=== PATIENT | male | born 1935 | race Caucasian/White ===

== ENCOUNTER 2019-09-28 00:11 | Observation (INO) ==
[2019-09-28] MEDS ORDERED: DEXTROSE 10% 250 ML BAG IV PRN (02:32)
[2019-09-28] MEDS ORDERED: GLUCAGON 1 MG VIAL IM PRN (02:32)
[2019-09-28] MEDS ORDERED: ONDANSETRON 4 MG/2 ML VIAL IV PRN (02:37)
[2019-09-28] MEDS ORDERED: ACETAMINOPHEN 325 MG TABLET PO PRN (02:37)
[2019-09-28 07:48] LABS: Albumin 3.1 G/DL (3.4-5.0); Bilirubin,Total 0.5 MG/DL (0.2-1.0); Osmolality,Calculated 277.4 MOS/KG (273-304); Risk Ratio 3.89; Total Protein 6.4 G/DL (6.4-8.3)
[2019-09-28] MEDS: PANTOPRAZOLE 40 MG TABLET PO SCH (08:05)
[2019-09-28] MEDS: LOSARTAN 25 MG TABLET PO SCH (10:54)
[2019-09-28] MEDS ORDERED: BACITRACIN OINT 0.9 GM PACK TOP SCH (12:00)
[2019-09-29 06:30] LABS: Basophils % 0.3 % (0.0-0.8); Eosinophils # 0.2 10*3/uL (0.0-0.87); Eosinophils % 3.1 % (0.00-10.9); Hematocrit 38.8 VOL% (42.0-52.0); Hemoglobin 12.4 GM/DL (14.0-18.0); Immature Granulocytes % 0.3 %; Immature Granulocytes Absolute 0.02 #; Lymphocytes # 1.8 10*3/uL (1.4-4.0); Lymphocytes % 23.8 % (21.2-54.2); Mean Corpuscular Volume 99.2 FL (87-102); Mean Platelet Volume 10.1 FL (9.6-12.0); Neutrophils % 59.5 % (38.7-73.9); Platelet Count 241 T/CUMM (130-400); Red Blood Count 3.91 MC/CUMM (3.8-5.5); Red Cell Distribution Width 13.4 % (9.3-17.3); White Blood Count 7.4 T/CUMM (4-12)
[2019-09-29 07:36] LABS: Calcium 8.7 MG/DL (8.5-10.1); Osmolality,Calculated 273.7 MOS/KG (273-304)
[2019-09-29] MEDS: PANTOPRAZOLE 40 MG TABLET PO SCH (09:38)
[2019-09-29] MEDS: LOSARTAN 25 MG TABLET PO SCH (09:39)
[2019-09-29 11:13] VITALS: BP 145/81
== END 2019-09-29 13:20 | disposition home or self-care (01) ==
LOC: SUATTDRO 01:59 → INTOOBSV 01:59 → N.TELES 01:59
PROVIDERS: ADMIT Internal Medicine; ATTEND Internal Medicine

== ENCOUNTER 2019-10-07 20:32 | Inpatient (IN) ==
[2019-10-07] MEDS ORDERED: SODIUM CHLORIDE 0.9% 1,000 ML IV STA ×2 (20:47→21:09)
[2019-10-07 20:53] LABS: Basophils % 0.1 % (0.0-0.8); Eosinophils % 0.1 % (0.00-10.9); Hematocrit 41.7 VOL% (42.0-52.0); Hemoglobin 13.6 GM/DL (14.0-18.0); Immature Granulocytes % 0.5 %; Immature Granulocytes Absolute 0.07 #; Lymphocytes # 1.2 10*3/uL (1.4-4.0); Lymphocytes % 7.8 % (21.2-54.2); Mean Corpuscular HGB Conc 32.6 GM/DL (32-36); Mean Corpuscular Volume 97.9 FL (87-102); Mean Platelet Volume 9.5 FL (9.6-12.0); Monocytes % 6.6 % (1.7-12.7); Neutrophils % 84.9 % (38.7-73.9); Platelet Count 316 T/CUMM (130-400); Red Blood Count 4.26 MC/CUMM (3.8-5.5); Red Cell Distribution Width 13.3 % (9.3-17.3); White Blood Count 14.8 T/CUMM (4-12)
[2019-10-07] MEDS ORDERED: DILTIAZEM 50 MG/10 ML VIAL IV STA (21:09)
[2019-10-07] MEDS ORDERED: ONDANSETRON 4 MG/2 ML VIAL IV ONE (21:09)
[2019-10-07 21:12] LABS: Albumin 3.4 G/DL (3.4-5.0); Bilirubin,Total 0.5 MG/DL (0.2-1.0); Calcium 10.1 MG/DL (8.5-10.1); Osmolality,Calculated 276.8 MOS/KG (273-304); Total Protein 6.8 G/DL (6.4-8.3)
[2019-10-07 21:34] LABS: Troponin I < 0.015 NG/ML (0.00-0.045)
[2019-10-07] MEDS ORDERED: ONDANSETRON 4 MG/2 ML VIAL ONE (21:47)
[2019-10-07] MEDS ORDERED: metroNIDAZOLE INJ 500 MG in PREMIX 1 EACH IV STA (22:12)
[2019-10-07] MEDS ORDERED: CIPROFLOXACIN INJ 400 MG in PREMIX 1 EACH IV STA (22:12)
[2019-10-07] MEDS ORDERED: metroNIDAZOLE 500 MG/100 ML PREMIX IV ONE (22:19)
[2019-10-07 22:25] LABS: Partial Thromboplastin Time 24.5 SECS (23.9-33.8)
[2019-10-07 23:08] LABS: Apearance,Urine CLEAR (Clear); Bilirubin,Urine Negative (Negative); Blood, Urine Negative (Negative); Glucose,Urine (UA) Negative (Negative); Hyaline Casts,Urine 23 /LPF (0-3); Ketones,Urine 5 mg/dL (Negative); Nitrite,Urine Negative (Negative); Protein,Urine Negative; RBC,Urine 1 /HPF (0-4); Urine Color Amber (Yellow); WBC,Urine 1 /HPF (0-6)
[2019-10-08] MEDS ORDERED: ONDANSETRON 4 MG/2 ML VIAL IV PRN (00:52)
[2019-10-08] MEDS ORDERED: ACETAMINOPHEN 325 MG TABLET PO PRN (00:52)
[2019-10-08] MEDS ORDERED: MORPHINE 4 MG/1 ML VIAL IV PRN (00:52)
[2019-10-08] MEDS: DEXTROSE 5% NACL 0.45% 1,000 ML IV SCH ×2 (03:04→15:55)
[2019-10-08] MEDS: cefTRIAXone 2,000 MG in SYRINGE 1 EACH IV SCH (03:05)
[2019-10-08] MEDS ORDERED: metroNIDAZOLE 500 MG TABLET PO SCH (06:00)
[2019-10-08 06:08] LABS: Basophils % 0.1 % (0.0-0.8); Hematocrit 42.5 VOL% (42.0-52.0); Immature Granulocytes % 0.4 %; Immature Granulocytes Absolute 0.07 #; Lymphocytes # 1.3 10*3/uL (1.4-4.0); Lymphocytes % 7.6 % (21.2-54.2); Mean Corpuscular HGB Conc 32.9 GM/DL (32-36); Mean Platelet Volume 10.2 FL (9.6-12.0); Monocytes % 8.1 % (1.7-12.7); Neutrophils % 83.8 % (38.7-73.9); Platelet Count 299 T/CUMM (130-400); Red Blood Count 4.38 MC/CUMM (3.8-5.5); Red Cell Distribution Width 13.3 % (9.3-17.3); White Blood Count 17.7 T/CUMM (4-12)
[2019-10-08 06:32] LABS: Calcium 9.5 MG/DL (8.5-10.1); Osmolality,Calculated 269.2 MOS/KG (273-304)
[2019-10-08] MEDS: metroNIDAZOLE 500 MG TABLET PO SCH ×2 (08:15→16:37)
[2019-10-09] MEDS: metroNIDAZOLE 500 MG TABLET PO SCH ×3 (01:42→16:17)
[2019-10-09] MEDS: cefTRIAXone 2,000 MG in SYRINGE 1 EACH IV SCH (01:42)
[2019-10-09 06:34] LABS: Basophils % 0.2 % (0.0-0.8); Eosinophils # 0.1 10*3/uL (0.0-0.87); Eosinophils % 0.6 % (0.00-10.9); Hemoglobin 12.9 GM/DL (14.0-18.0); Immature Granulocytes % 0.5 %; Immature Granulocytes Absolute 0.06 #; Lymphocytes # 1.6 10*3/uL (1.4-4.0); Lymphocytes % 12.5 % (21.2-54.2); Mean Corpuscular HGB Conc 32.3 GM/DL (32-36); Mean Platelet Volume 10.4 FL (9.6-12.0); Monocytes % 10.4 % (1.7-12.7); Neutrophils % 75.8 % (38.7-73.9); Platelet Count 275 T/CUMM (130-400); Red Cell Distribution Width 13.5 % (9.3-17.3)
[2019-10-09] MEDS: DEXTROSE 5% NACL 0.45% 1,000 ML IV SCH (06:34)
[2019-10-09 06:57] LABS: Calcium 8.3 MG/DL (8.5-10.1); Osmolality,Calculated 273.7 MOS/KG (273-304)
[2019-10-09] MEDS: EZETIMIBE 10 MG TABLET PO SCH (18:23)
[2019-10-09] MEDS: LOSARTAN 25 MG TABLET PO SCH (18:23)
[2019-10-09] MEDS: FINASTERIDE 5 MG TABLET PO SCH (18:23)
[2019-10-09] MEDS: ATORVASTATIN 10 MG TABLET PO SCH (18:23)
[2019-10-09] MEDS ORDERED: FLUTICASONE 50 MCG NASAL SPRAY 16 GM BOTTLE BOTH NARES PRN (21:00)
[2019-10-10] MEDS: cefTRIAXone 2,000 MG in SYRINGE 1 EACH IV SCH (02:15)
[2019-10-10] MEDS: metroNIDAZOLE 500 MG TABLET PO SCH ×2 (02:20→09:38)
[2019-10-10 06:39] LABS: Basophils % 0.2 % (0.0-0.8); Eosinophils # 0.3 10*3/uL (0.0-0.87); Eosinophils % 2.9 % (0.00-10.9); Hematocrit 38.3 VOL% (42.0-52.0); Hemoglobin 12.4 GM/DL (14.0-18.0); Immature Granulocytes % 0.3 %; Immature Granulocytes Absolute 0.03 #; Lymphocytes # 1.7 10*3/uL (1.4-4.0); Lymphocytes % 15.9 % (21.2-54.2); Mean Corpuscular HGB Conc 32.4 GM/DL (32-36); Mean Platelet Volume 10.2 FL (9.6-12.0); Monocytes % 9.9 % (1.7-12.7); Neutrophils % 70.8 % (38.7-73.9); Platelet Count 273 T/CUMM (130-400); Red Blood Count 3.87 MC/CUMM (3.8-5.5); Red Cell Distribution Width 13.6 % (9.3-17.3); White Blood Count 10.8 T/CUMM (4-12)
[2019-10-10 06:56] LABS: Calcium 8.5 MG/DL (8.5-10.1); Osmolality,Calculated 274.5 MOS/KG (273-304)
[2019-10-10] MEDS: EZETIMIBE 10 MG TABLET PO SCH (09:38)
[2019-10-10] MEDS: ATORVASTATIN 10 MG TABLET PO SCH (09:38)
[2019-10-10] MEDS: FINASTERIDE 5 MG TABLET PO SCH (09:38)
[2019-10-10] MEDS: LOSARTAN 25 MG TABLET PO SCH (09:39)
[2019-10-10 15:18] VITALS: BP 124/66
== END 2019-10-10 13:20 | disposition home health service (06) | DRG 392 ==
LOC: EDUNIT# → EDBD → N.ED 20:32 → SUATTDRO 22:49 → N.EDINP 22:49 → N.TELEN 23:20
PROVIDERS: ADMIT Hospitalist; ATTEND Internal Medicine